=== PATIENT | male | born 1945 | race Caucasian/White ===

== ENCOUNTER 2016-09-23 21:12 | Emergency (ER) | payer MEDICARE, MEDICAID ==
[~2016-09-23] VITALS: Ht 154.9 cm; Wt 68.0 kg
[~2016-09-23 21:12] MED LIST: GLUCOTROL5 MG PO; MYSOLINE50 MG PO; PROAIR HFA0.09 MG/Ac IH; SYMBICORT1 AE1 IH; TUSSIN100 MG/52 PO; TYLENOL #3 300/1 TAB PO; VASOTEC20 MG PO; ZOCOR10 MG PO
[2016-09-23 21:19] VITALS: BP 146/74
--- NOTE | 2016-09-24 00:20 | NUR ---
TO ER BED 3
--- NOTE | 2016-09-24 00:45 | NUR ---
71/M BIB FAMILY C/O HIGH BLOOD SUGAR 2 DAYS AGO, RT EYE GETTING BLURRY. PT STATES HE IS STARTING TO HAVE FLANK PAIN, NON-RADIATING 04/12. AAOx4, PERRLA , BREATHING EVEN AND EFFORTLESS. ERMD NOTIFIED OF PATIENT STATUS.
--- NOTE | 2016-09-24 00:50 | NUR ---
Patient being evaluated by physician at bedside.
[2016-09-24] MEDS ORDERED: NACL 0.9% 1,000 ML IV ONE (01:20)
--- NOTE | 2016-09-24 01:45 | NUR ---
PT RESTING. VSS; PATIENT POSITIONED FOR COMFORT; HOB ELEVATED; BEDRAILS UP X2; BED DOWN. ER MD MADE AWARE OF PT STATUS.
--- NOTE | 2016-09-24 02:44 | NUR ---
PT RESTING. VSS; PATIENT POSITIONED FOR COMFORT; HOB ELEVATED; BEDRAILS UP X2; BED DOWN. ER MD MADE AWARE OF PT STATUS.
[2016-09-24 03:18] VITALS: BP 132/71
--- NOTE | 2016-09-24 03:18 | NUR ---
Patient discharged with v/s stable. Written and verbal after care instructions given and explained. Patient alert, oriented and verbalized understanding of instructions. Ambulatory with steady gait. All questions addressed prior to discharge. ID band removed. Patient advised to follow up with PMD. Rx of CIPRO 500 MG, [id number] UNIT/ML 14 UNITS SUBQ HS given. Patient educated on indication of medication including possible reaction and side effects. Opportunity to ask questions provided and answered.
== END 2016-09-24 03:18 | disposition home or self-care (01) ==
LOC: MED 21:12
DX: E11.65 Type 2 diabetes mellitus with hyperglycemia (principal); N39.0 Urinary tract infection, site not specified; J45.909 Unspecified asthma, uncomplicated; I10 Essential (primary) hypertension; E78.00 Pure hypercholesterolemia, unspecified; Z90.89 Acquired absence of other organs; Z79.899 Other long term (current) drug therapy
CPT/HCPCS: 36415; 80053; 81001; 82948; 85025; 87086; 93005; 96360; 99285; J7030

== ENCOUNTER 2022-11-21 04:07 | Emergency (ER) | payer MEDICARE, OTHER ==
[~2022-11-21] VITALS: Ht 170.2 cm; Wt 77.1 kg
[~2022-11-21 04:07] MED LIST changes: +ACET-503 PO; +ALBU-118 IH; +BUDE1AER IH; +ENAL20TA46 PO; +GLIP5TAB14 PO; -GLUCOTROL5 MG PO; -MYSOLINE50 MG PO; +PRIM50TA13 PO; -PROAIR HFA0.09 MG/Ac IH; +SIMV-371 PO; -SYMBICORT1 AE1 IH; -TUSSIN100 MG/52 PO; -TYLENOL #3 300/1 TAB PO; -VASOTEC20 MG PO; -ZOCOR10 MG PO; +[UNRECOGNIZED DRUG - CODE] PO
--- NOTE | 2022-11-21 04:13 | NUR ---
[facility] TO BED #11
[2022-11-21 04:21] VITALS: BP 148/72
--- NOTE | 2022-11-21 04:48 | NUR ---
BLOOD SUGAR RECHECK=99, SNACK PROVIDED , LAURA WELL
[2022-11-21 06:12] VITALS: BP 153/66
--- NOTE | 2022-11-21 06:15 | NUR ---
PT BACK TO HIS BASELINE,AFTER A MEAL, SKIN WARM , DRY , MORE INTERACTIVE
--- NOTE | 2022-11-21 06:16 | NUR ---
Patient discharged with v/s stable. Written and verbal after care instructions given and explained. DAUGHTER verbalized understanding. Wheel Chair Assisted with to car. All questions addressed prior to discharge. Advised to follow up with PMD.
== END 2022-11-21 06:06 | disposition home or self-care (01) ==
LOC: MED 04:07
DX: E11.649 Type 2 diabetes mellitus with hypoglycemia without coma (principal); I10 Essential (primary) hypertension; F03.90 Unspecified dementia, unspecified severity, without behavioral disturbance, psychotic disturbance, mood disturbance, and anxiety; J45.909 Unspecified asthma, uncomplicated; Z79.4 Long term (current) use of insulin; Z79.899 Other long term (current) drug therapy
CPT/HCPCS: 99283

== ENCOUNTER 2023-03-28 01:25 | Emergency (ER) | payer OTHER ==
[~2023-03-28] VITALS: Ht 162.6 cm; Wt 61.2 kg
[2023-03-28 01:36] VITALS: BP 134/65; PULSE 71; RESP 16; TEMP 98.5; O2SAT 97
[2023-03-28] MEDS ORDERED: KETOROLAC 30 MG/ML VIAL IM ONE (02:40)
[2023-03-28] MEDS ORDERED: ACETAMINOPHEN EXTRA STRENGTH 500 MG TAB PO ONE (02:40)
[2023-03-28] MEDS ORDERED: HYDROcodone/APAP 5/325 MG 1 TAB TAB PO ONE (05:00)
[2023-03-28 05:16] LABS: BASOPHILS % (AUTO) 0.6 % (0.0-2.0); EOSINOPHILS # (AUTO) 0.1 K/uL (0-0.4); EOSINOPHILS % (AUTO) 1.5 % (0.0-4.0); HEMATOCRIT 37.5 % (36-52); HEMOGLOBIN 12.2 g/dL (12.0-18.0); LYMPHOCYTES # (AUTO) 1.9 K/uL (2.0-11.5); LYMPHOCYTES % (AUTO) 34.7 % (20.5-51.1); MEAN CORPUSCULAR HEMOGLOBIN 28 pg (27-31); MEAN CORPUSCULAR HGB CONC 33 g/dL (33-37); MEAN CORPUSCULAR VOLUME 85.2 fL (80-94); MONOCYTES # (AUTO) 0.5 K/uL (0.8-1.0); NEUTROPHILS % (AUTO) 54.2 % (42.2-75.2); PLATELET COUNT (AUTO) 269 K/uL (140-450); RED CELL DISTRIBUTION WIDTH 15.6 % (11.6-13.7); WHITE BLOOD COUNT (AUTO) 5.4 K/uL (4.8-10.8)
[2023-03-28 05:19] LABS: ANION GAP 11.4 (8-16); CALCIUM 8.9 mg/dL (8.5-10.1); CARBON DIOXIDE 29.7 mmol/L (21-32); CHLORIDE 107 mmol/L (98-107); CREATININE 0.9 mg/dL (0.6-1.3); GLUCOSE 111 mg/dL (74-106); POTASSIUM 4.1 mmol/L (3.5-5.1); SODIUM SERUM 144 mmol/L (136-145); UREA NITROGEN, BLOOD 18 mg/dL (7-18)
[2023-03-28] MEDS ORDERED: NAPR-1704 PO (06:14)
[2023-03-28] MEDS ORDERED: ACET-8905 PO (06:14)
[2023-03-28 07:05] VITALS: BP 169/85; PULSE 71; RESP 18; TEMP 98.5; O2SAT 97
== END 2023-03-28 07:06 | disposition home or self-care (01) ==
LOC: MED 01:25
DX: M13.861 Other specified arthritis, right knee (principal); J45.909 Unspecified asthma, uncomplicated; E11.9 Type 2 diabetes mellitus without complications; F03.90 Unspecified dementia, unspecified severity, without behavioral disturbance, psychotic disturbance, mood disturbance, and anxiety; I10 Essential (primary) hypertension; Z79.899 Other long term (current) drug therapy
CPT/HCPCS: 36415; 73562; 73700; 80048; 85025; 96372; 99285; J1885; Q0092